=== PATIENT | female | born 1980 | race Two or more races ===

== ENCOUNTER 2021-05-11 20:37 | Emergency (ER) | payer BC, MEDICARE ==
[~2021-05-11] VITALS: Ht 162.6 cm; Wt 95.3 kg
[2021-05-11 21:03] VITALS: BP 156/86
--- NOTE | 2021-05-11 21:06 | NUR ---
PT AMBULATED TO TENT WITH STEADY GAIT
--- NOTE | 2021-05-11 23:56 | NUR ---
called patient in lobby/tent. no answer x3.
== END 2021-05-11 23:56 | disposition left against medical advice (07) ==
LOC: MED 20:37
DX: M54.50 Low back pain, unspecified (principal); Z53.21 Procedure and treatment not carried out due to patient leaving prior to being seen by health care provider

== ENCOUNTER 2021-09-21 02:51 | Emergency (ER) | payer BC ==
[~2021-09-21] VITALS: Ht 162.6 cm; Wt 87.1 kg
[2021-09-21 03:00] VITALS: BP 120/82
--- NOTE | 2021-09-21 03:07 | NUR ---
Patient ambulated to bed 10.
--- NOTE | 2021-09-21 03:38 | NUR ---
Dr. Kerr examming patient.
--- NOTE | 2021-09-21 03:39 | NUR ---
ER MD AT BEDSIDE EXAMINING PT
[2021-09-21] MEDS ORDERED: IBUPROFEN 800 MG TAB PO ONE (03:45)
--- NOTE | 2021-09-21 04:06 | NUR ---
41 Y/O FEMALE BIBS FROM HOME, C/O LEFT ARM PAIN X1 MONTH. PT STATES SHE FELL FROM HER RV A MONTH AGO. FULL ROM, PAIN W/ MOVEMENT, CMS INTACT, NO BRUISING OR SWELLING, NO VISUAL TRAUMA. PT HAS UNLABORED BREATHING, AMBULATORY WITHOUT ASSISTANCE. PT SEATED ON BED WITH HOB RAISED, BED IN LOWEST SETTING, AND RAIL UP X1. HX: HERNIA AND NKA DENIES MEDS
[2021-09-21] MEDS ORDERED: IBUP-2218 PO (04:23)
[2021-09-21 04:44] VITALS: BP 120/82
--- NOTE | 2021-09-21 04:45 | NUR ---
Patient discharged with v/s stable. Written and verbal after care instructions given and explained. Patient alert, oriented and verbalized understanding of instructions. Ambulatory with steady gait. All questions addressed prior to discharge. ID band removed. Patient advised to follow up with PMD. Rx of IBUPROFEN given. Patient educated on indication of medication including possible reaction and side effects. Opportunity to ask questions provided and answered. VSS, A/OX4, AMBULATORY, UNLABORED BREATHING, AND CALM DEMEANOR.
== END 2021-09-21 04:46 | disposition home or self-care (01) ==
LOC: MED 02:51
DX: S43.084A Other dislocation of right shoulder joint, initial encounter (principal); H92.09 Otalgia, unspecified ear; Z79.899 Other long term (current) drug therapy; W22.8XXA Striking against or struck by other objects, initial encounter; Y93.89 Activity, other specified; Y92.89 Other specified places as the place of occurrence of the external cause; Y99.8 Other external cause status
CPT/HCPCS: 73030; 81025; 99283; Q0092

== ENCOUNTER 2024-02-13 02:57 | Emergency (ER) | payer SELFPAY ==
[~2024-02-13] VITALS: Ht 162.6 cm; Wt 86.2 kg
[~2024-02-13 02:57] MED LIST: IBUP-2218 PO
[2024-02-13 03:08] VITALS: BP 119/77; PULSE 113; RESP 18; TEMP 98.4; O2SAT 100
[2024-02-13] MEDS: NACL 0.9% 1,000 ML IV ONE ×2 (03:49→06:02)
[2024-02-13 04:04] LABS: BASOPHILS % (AUTO) 0.3 % (0.0-2.0); EOSINOPHILS % (AUTO) 0.3 % (0.0-4.0); HEMATOCRIT 36.4 % (36-48); HEMOGLOBIN 12.5 g/dL (12.0-16.0); LYMPHOCYTES # (AUTO) 1.1 K/uL (2.5-16.5); LYMPHOCYTES % (AUTO) 14.8 % (20.5-51.1); MEAN CORPUSCULAR HEMOGLOBIN 30 pg (27-31); MEAN CORPUSCULAR HGB CONC 34 g/dL (33-37); MEAN CORPUSCULAR VOLUME 88.7 fL (80-94); MONOCYTES % (AUTO) 14.1 % (1.7-9.3); NEUTROPHILS # (AUTO) 5.1 K/uL (1.8-7.7); NEUTROPHILS % (AUTO) 70.5 % (42.2-75.2); PLATELET COUNT (AUTO) 249 K/uL (140-450); RED CELL DISTRIBUTION WIDTH 13.9 % (11.6-13.7); WHITE BLOOD COUNT (AUTO) 7.2 K/uL (4.8-10.8)
[2024-02-13 04:06] LABS: ANION GAP 9.4 (8-16); CALCIUM 8.3 mg/dL (8.5-10.1); CARBON DIOXIDE 29.7 mmol/L (21-32); CREATININE 0.9 mg/dL (0.6-1.3); POTASSIUM 3.1 mmol/L (3.5-5.1)
[2024-02-13 04:12] LABS: ALBUMIN 2.2 g/dL (3.4-5.0); BILIRUBIN,DIRECT 0.2 mg/dL (0.0-0.3); TOTAL BILIRUBIN 0.4 mg/dL (0.0-1.0); TOTAL PROTEIN, SERUM 6.2 g/dL (6.4-8.2)
[2024-02-13] MEDS: MORPHINE SULFATE 4 MG/ML SYR IVP ONE (06:01)
[2024-02-13 06:07] LABS: BILIRUBIN,URINE NEGATIVE (NEGATIVE); BLOOD, URINE NEGATIVE (NEGATIVE); COLOR,URINE YELLOW (YELLOW); LEUKOCYTE ESTERASE ,URINE 1+ (NEGATIVE); NITRITE, URINE NEGATIVE (NEGATIVE); PROTEIN,URINE NEGATIVE (NEGATIVE); UGLUCOSE NEGATIVE (NEGATIVE)
[2024-02-13 06:08] LABS: APPEARANCE,URINE SLIGHTLY HAZY (CLEAR)
[2024-02-13 06:10] LABS: BACTERIA,URINE 2+ /HPF (None Seen); MUCUS,URINE None Seen /LPF (None Seen); RBC,URINE 0 /HPF (0-5); SQUAMOUS EPITHELIAL CELL,UR 0-3 (FEW) /LPF (0-3 (FEW)); WBC,URINE 0-5 /HPF (0-5)
[2024-02-13] MEDS ORDERED: NAPR-337 PO (06:13)
[2024-02-13] MEDS ORDERED: CIPR500T9 PO (06:13)
[2024-02-13] MEDS ORDERED: cefTRIAXone 1,000 MG VIAL ONE (06:17)
[2024-02-13 06:40] VITALS: BP 119/77; PULSE 113; RESP 18; TEMP 98.4; O2SAT 100
== END 2024-02-13 06:40 | disposition home or self-care (01) ==
LOC: MED 02:57
DX: N39.0 Urinary tract infection, site not specified (principal); E11.9 Type 2 diabetes mellitus without complications; Z79.899 Other long term (current) drug therapy
CPT/HCPCS: 36415; 80048; 80076; 81001; 85025; 87086; 96361; 96365; 96375; 99284; J0696; J2270; J7030